=== PATIENT | female | born 1985 | race Caucasian/White ===

== ENCOUNTER 2020-06-05 01:05 | Emergency (ER) | payer MEDICAID ==
[~2020-06-05] VITALS: Ht 142.2 cm; Wt 78.9 kg
[2020-06-05 01:13] VITALS: Ht 142.2 cm; Wt 78.9 kg
[2020-06-05 02:16] VITALS: BP 149/98
== END 2020-06-05 02:16 | disposition home or self-care (01) ==
LOC: ED 01:05
DX: T16.2XXA Foreign body in left ear, initial encounter (principal); X58.XXXA Exposure to other specified factors, initial encounter; Y93.89 Activity, other specified; Y92.89 Other specified places as the place of occurrence of the external cause; Y99.8 Other external cause status